=== PATIENT | female | born 1980 | race Caucasian/White ===

== ENCOUNTER 2020-12-22 15:56 | Emergency (ER) | payer OTHER ==
[~2020-12-22 15:56] MED LIST: ZESTRIL5 MG PO
[2020-12-22 18:02] LABS: INR 1.08 (0.9-1.2); PROTHROMBIN TIME 13.4 SECONDS (11.8-13.4); PTT 27.5 SECONDS (24.4-34.7)
[2020-12-22 18:04] LABS: ALBUMIN 3.8 g/dL (3.4-5.0); BILIRUBIN - TOTAL 0.5 mg/dL (0.2-1.0); BUN/CREAT RATIO (CALC) 19.1 RATIO; CREATININE 0.68 mg/dL (0.51-0.95); GLOBULIN (CALCULATION) 4.2 g/dL; POTASSIUM 3.2 mmol/L (3.5-5.1)
[2020-12-22 18:47] LABS: BASOPHIL 0.4 % (0-2); EOSINOPHIL 0.9 % (0-5); HCT 40.3 % (37.0-47.0); HGB 13.2 g/dl (12.5-16.0); LYMPHOCYTE 23.8 % (15-48); MCH 28.5 pg (25.0-31.0); MCHC 32.8 g/dL (32.0-36.0); MONOCYTE 5.6 % (0-12); MPV 9.8 fL (6.0-9.5); NRBC 0; PLT 254 K/uL (150-400); RBC 4.63 M/uL (4.20-5.40); RDW 12.7 % (11.5-14.0); WBC 10.4 K/uL (4.0-10.5)
[2020-12-22] MEDS ORDERED: ZESTRIL5 MG PO (20:12)
== END 2020-12-22 20:30 | disposition home or self-care (01) ==
LOC: FER 15:56
PROVIDERS: Emergency Medicine
DX: I10 Essential (primary) hypertension (principal); Z79.899 Other long term (current) drug therapy
CPT/HCPCS: 36415; 71045; 80053; 84484; 85025; 85610; 85730; 93005